=== PATIENT | female | born 1975 | race Caucasian/White ===

== ENCOUNTER 2021-12-11 14:29 | Emergency (ER) | payer OTHER ==
[2021-12-11 16:15] LABS: BASOPHIL 0.8 % (0-2); EOSINOPHIL 0 % (0-5); HCT 40.7 % (37.0-47.0); HGB 13.4 g/dl (12.5-16.0); LYMPHOCYTE 18.1 % (15-48); MCH 28.5 pg (25.0-31.0); MCHC 32.9 g/dL (32.0-36.0); MCV 86.4 fL (78.0-100.0); MONOCYTE 11.5 % (0-12); MPV 10.1 fL (6.0-9.5); NEUTROPHIL 69.3 % (41-80); NRBC 0; PLT 252 K/uL (150-400); RBC 4.71 M/uL (4.20-5.40); RDW 13.2 % (11.5-14.0); WBC 3.8 K/uL (4.0-10.5)
[2021-12-11 16:53] LABS: INFLUENZA A NAA NEGATIVE (NEGATIVE)
[2021-12-11 16:56] LABS: CORONAVIRUS 2019 SARS-COV-2 POSITIVE (NEGATIVE)
[2021-12-11 17:10] LABS: BILIRUBIN NEGATIVE (NEGATIVE); BLOOD NEGATIVE Ery/uL (NEGATIVE); CLARITY SLIGHTLY HAZY (CLEAR); COLOR YELLOW (YELLOW); GLUCOSE (U) NORMAL (NORMAL); LEUKOCYTES NEGATIVE Leu/uL (NEGATIVE); NITRITE NEGATIVE (NEGATIVE); PROTEIN 1+ mg/dL (NEGATIVE); SPECIFIC GRAVITY >=1.030 (1.001-1.030)
[2021-12-11 17:18] LABS: BACTERIA 1+; MUCOUS TRACE; URINARY RBC RARE
[2021-12-11 17:21] LABS: ALBUMIN 3.8 g/dL (3.4-5.0); BILIRUBIN - TOTAL 0.3 mg/dL (0.2-1.0); BUN/CREAT RATIO (CALC) 12.4 RATIO; CREATININE 0.97 mg/dL (0.51-0.95); GLOBULIN (CALCULATION) 4.3 g/dL; POTASSIUM 3.5 mmol/L (3.5-5.1); TOTAL PROTEIN 8.1 g/dL (6.4-8.2)
[2021-12-11] MEDS ORDERED: VENTOLIN HFA IN18 GM INH (17:30)
[2021-12-11] MEDS ORDERED: ZPAK PO (17:30)
[2021-12-11] MEDS ORDERED: ONDANSETRON ODT4 MG PO (17:30)
[2021-12-11] MEDS ORDERED: MEDROL 4MG DOSEP4 MG PO (17:30)
== END 2021-12-11 17:30 | disposition home or self-care (01) ==
LOC: FER 14:29
PROVIDERS: Nurse Practitioner Family
DX: U07.1 COVID-19 (principal); Z28.310 Unvaccinated for COVID-19
CPT/HCPCS: 36415; 80053; 81001; 85025; J2405; J7030; U0002